=== PATIENT | female | born 1990 | race Two or more races ===

== ENCOUNTER 2025-02-12 11:02 | Outpatient (AMB) | payer MEDICAID, SELFPAY ==
[2025-02-12 11:24] VITALS: BP 112/77; PULSE 103; RESP 20; TEMP 36.7; O2SAT 97; BMI 30.7
--- NOTE | 2025-02-12 11:24 | AMB.OBINITIA ---
Vital Signs 02/12/25 11:24 Height 1.52 m Height Method Stated Weight 71.441 kg Weight Measurement Method Standing Scale BMI 30.7 BP 112/77 Blood Pressure Source Automatic Cuff Blood Pressure Location Left Upper Arm Position Sitting Respiration 20 Pulse 103 H Pulse Source Monitor Temp 98.1 F Temp Source Oral Pulse Oximetry (%) 97 Oxygen Delivery Method Room Air Allergies/Home Meds Allergies & Medications Allergies No Known Allergies Allergy (Verified 02/12/25 14:51) Medication Reconciliation vitamins no.45-iron-FA 28 mg iron-1 mg chewable tablet 1 tab PO QDAY 02/12/25 [History Confirmed 02/12/25] Intake Visit Data Collection New Patient or Established: Established Patient (seen at [facility] within 3 years) Reason for Visit:: INITIAL CARE Seen by Clinical Staff ONLY (RN/MA): No Nuclear Control Room Operator Required: Yes Nuclear Control Room Operator's name/title: TANYA RAY Do You Feel Safe at Home: Yes Authorities Contacted: N/A PCP or OBGYN visit in last 3 months: Yes Hx Now: Yes Are you currently on any form of Control: No Last menstrual period: 05/10/24 Pain Present Currently: No Pain Scale Used: López-Gale/Numerical Pain scale:: 0 Smoking Status Smoking Status: Never smoker Questionnaires Covid-19 Vaccine Questionnaire Has patient been vacinated for Covid-19 Have you been vacinated for Covid-19: Yes PHQ-9 PHQ-2 Over the last 2 weeks, how often have you been bothered by any of the following problems? 1. Little interest or pleasure in doing things: not at all 2. Feeling down, depressed, or hopeless: not at all Total score: 0 PHQ-9 3. Trouble falling or staying asleep, or sleeping too much: Not at all 4. Feeling tired or having little energy: Not at all 5. Poor appetite or overeating: Not at all 6. Feeling bad about yourself - or that you are a failure or have let yourself or your family down: Not at all 7. Trouble concentrating on things, such as reading the newspaper or watching television: Not at all 8. Moving or speaking so slowly that other people could have noticed? - Or the opposite - being so fidgety or restless that you have been moving around a lot more than usual: not at all 9. Thoughts that you would be better off or of hurting yourself in some way: Not at all Total score: 0 Source: Developed by Drs. Dawit Mak, Nkechi Beyer, Sushil Lindo and colleagues, with an educational ravi from [employer]. Depression screen completed yes Social History Living Situation History Marital Status: Lives With: Family Housing: Apartment Tobacco History Smoking Status: Never smoker Second Hand Smoke Exposure: No Alcohol History Alcohol Intake: Never Domestic Abuse History Do You Feel Safe at Home: Yes History of Present Illness HPI Narrative Patient is a [id number] at 36 weeks and 3 days gestation, [facility]. She reports having started care at [facility] but experienced delays in follow-up care due to insurance issues. She was unable to obtain insurance until last month, which delayed her ability to receive further care and ultrasounds. She has a history of one previous resulting in section in February 2024 due to failure to descend. The patient reports having an ultrasound done but does not provide specific details about the findings. She mentions that she was given an estimated due date for this month but acknowledges that it might have been irregular. She went for care in October but was unable to continue due to insurance delays. She does not report any specific symptoms or concerns related to her current . She confirms that the baby is moving, indicating activity. She denies any medical issues in the current . Surgical History: - section in February 2024 due to failure to descend Obstetric History: - GTPAL: G2 T1 L1 - Previous : section in February 2024 due to failure to descend - Current : Estimated due date January 2025, gestational age 36 weeks and 3 days by fundal height measurement MEDICAL FACILITIES SECTION DIRECTOR: Past Medical History Past Medical History: No Hx Neurological Disorders, No Hx Cardiac Disorders, No Hx Blood Disorders, No Hx Gastrointestinal Disorders, No Hx Renal Disease, No Hx Diabetes Mellitus Type 1 and No Hx Diabetes Mellitus Type 2 OB Initial Visit OB Flowsheet OB Flowsheet Initial Weight: Not Recorded Date <del>?</del> EGA Weight BP Alb Glu CTX Pres Fundal ht FHR Mov Dilation Station Effacement Hx Notes Visit Note 02/12/25 <del>?</del> 36w 3d 71.441 kg 112/77 absent cephalic 37 145 active 36-week 3-day patient presents [facility] due to prior insurance delays. Her only prior resulted in section in February 2024 for failure to descend. She reports no complications or symptoms in the current and notes normal movement. labs are unremarkable, showing blood type O+, rubella immunity, negative infectious disease screens, hemoglobin 10.6, and TSH 4.8. Fundal height is consistent with gestational age. No prior ultrasound report is available at this time. 36w3d intrauterine in a patient with prior and delayed care. Plan includes immediate referral for comprehensive ultrasound, scheduling of follow-up in 1 week, and request for prior ultrasound records. Menstrual History Menstrual reliability: definite Flow: normal Menstrual regularity: regular Monthly: Yes Age at menarche: 14 On control pills at conception: No Associated symptoms (LMP): Reports fatigue OB History : 2 Para: 1 # of Living Children: 1 Delivery History 1st : Child's name: ANA date: 03/02/24 sex: female Gestational age at delivery (weeks): 40 Delivery type: History of depression before or after : No Infection History & Risk Evaluation History of STDs: none Genetic Screening & History Genetic Screening/Teratology Counseling - Includes patient, baby's father, or anyone in either family with: 1. Patient's age 35 years or older as of estimated date of delivery: No 2. Thalassemia (German, Tamazight, Mediterranean, or Background); MCV less than 80: No 3. Neural Tube Defect (Meningomyelocele, Spina Bifida, or Anencephaly): No 4. Congenital Heart Defect: No 5. Down Syndrome: No 6. Roger-Sachs (Ashkenazi Denominational, Cajun, Cymraes Lebanese): No 7. Eulogio Disease (Ashkenazi Denominational): No 8. Familial Dysautonomia (Ashkenazi Denominational): No 9. Sickle Cell Disease or Trait (): No 10. Hemophilia or other blood disorders: No 11. Muscular Dystrophy: No 12. Cystic Fibrosis: No 13. [place]'s Chorea: No 14. Mental Retardation/Autism: No 15. Other inherited genetic or chromosomal disorder: No 16. Maternal Metabolic Disorder (EG,TYPE 1 Diabetes, PKU): No 17. Patient or baby's father had a child with defects not listed above: No 18. Recurrent loss or a stillbirth: No 19. Medications (including supplements, vitamins, herbs or otc drugs)/illicit/recreational drugs/alcohol since last menstrual period: No 20. Any other: No Infection History 1. Live with someone with TB or exposed to TB: No 2. Rash or viral illness since last menstrual period: No 3. Hepatitis B,C: No Other (see comments) Source: [employer] Review of Systems Constitutional Constitutional: Reports fatigue Endocrine Endocrine: Reports fatigue Exam General Limitations: no limitations General Appearance: alert, in no apparent distress and comfortable Head Head exam: atraumatic and normocephalic Eye Eye exam: Present normal appearance, PERRL and EOMI Neck Neck exam: Present normal inspection and full ROM Chest Chest inspection: Present normal inspection and symmetric chest wall rise; Absent tenderness Resp Respiratory exam: Present normal lung sounds bilaterally; Absent respiratory distress Card Cardiovascular exam: Present regular rate and normal rhythm Abdominal Abdominal exam: Present soft and normal bowel sounds; Absent tenderness, guarding, rebound or rigidity Neuro Neurological exam: Present alert and oriented X3 Psych Psychiatric exam: Present normal affect Office Procedures OB Clinic LOC & Office Proc's Nursing/Assessment Patient Status: Established Patient OB Clinic Nursing Assessment: Medication Reconciliation, Update PMH in EMR and Vital Signs OB Clinic Coordination of Care: Complex Care and Chronic Disease 1-5, Consent,records obtained, informed consent, Education Simp Pt/Fam, 1 Ins Authorization, Lab and Imaging orders, Results/Orders obtained and Staff clarify orders Special Needs: Heart tones Established Patient Charge Established Patient Point Assignment: 150 Established Patient Point Charge: EP Level 4 (120-155) Assessment & Plan Diagnosis / Problem List (1) Supervision of high risk , unspecified, third trimester: Status: Acute Plan , intrauterine, 36 weeks 3 days Assessment: Patient [facility] with history of section last year due to failure to descend. Current estimated at 36 weeks and 3 days based on fundal height measurement. Patient denies any medical issues in current . Initial labs reviewed with negative results for hepatitis B, hepatitis C, RPR, HIV, gonorrhea, and chlamydia. Blood type O positive with negative antibody screen. Rubella immune. Hemoglobin 10.6 with platelet count of 350. No ultrasound or imaging reports currently available. Plan: - Immediate referral to hospital for comprehensive ultrasound evaluation - Follow-up appointment scheduled for one week - Obtain previous ultrasound report from [facility]
== END 2025-02-12 11:59 | disposition home or self-care (01) ==
LOC: HODSOBC 11:02
PROVIDERS: Supervising Provider Obstetrics & Gynecology; Visit Provider Obstetrics & Gynecology
DX: O09.293 Supervision of pregnancy with other poor reproductive or obstetric history, third trimester (principal); O34.219 Maternal care for unspecified type scar from previous cesarean delivery; Z3A.36 36 weeks gestation of pregnancy; Z87.59 Personal history of other complications of pregnancy, childbirth and the puerperium
CPT/HCPCS: 99214; G0463

== ENCOUNTER 2025-02-12 14:13 | Outpatient (CLI) | payer MEDICAID, SELFPAY ==
[2025-02-12] VITALS (27 sets, daily range): BP systolic 105; BP diastolic 65; PULSE 101–127; RESP 18–98; TEMP 36.7; O2SAT 98–100; BMI 31.0
--- NOTE | 2025-02-12 14:15 | XR_ITS ---
Examination: Complete OB ultrasound greater than 14 weeks Date and time of exam: February 12, 2025 1428 hours INDICATIONS: Unknown size and dates Findings: Viable intrauterine single fetus with single amniotic sac presentation cephalic spine maternal right Cardiac motion 155 BPM Placenta fundal grade 1 Umbilical cord insertion 3 vessel seen Amniotic fluid index 15.3 cm Ovaries obscured by bowel gas. Composite estimated gestational age based on BPD, head circumference, abdominal circumference, femur length is 35 weeks 2 days Estimated weight 2614.9 g. Survey of intracranial anatomy, spinal anatomy, abdominal anatomy, four-chamber heart performed with no abnormalities identified. Impression: Viable intrauterine gestation cephalic presentation.
--- NOTE | 2025-02-12 15:16 | XR_ITS ---
Examination: Biophysical profile, ultrasound Date and time of exam: February 12, 2025 1537 hours INDICATIONS: Unknown size and dates Technique: Multiple transabdominal sonographic images of the pelvis abdomen obtained. Attention is directed to the breathing movement, gross body movement, amniotic fluid volume and tone. Findings: Amniotic fluid index 17.7 cm Total biophysical profile is 8 of 8. breathing movement is 2. Gross body movement is 2. tone is 2. Qualitative amniotic fluid volume is 2 Impression: Biophysical profile is 8 of 8.
== END 2025-02-12 16:29 | disposition home or self-care (01) ==
LOC: S4S1 14:14 → S4SX 14:14
PROVIDERS: Referring Provider Obstetrics & Gynecology; Visit Provider Obstetrics & Gynecology
DX: Z34.83 Encounter for supervision of other normal pregnancy, third trimester (principal); Z36.89 Encounter for other specified antenatal screening; Z3A.35 35 weeks gestation of pregnancy
CPT/HCPCS: 59025; 76805; 76819

== ENCOUNTER 2025-02-19 14:55 | Inpatient (IN) | payer MEDICAID, SELFPAY ==
[2025-02-19] VITALS (20 sets, daily range): BP systolic 92–125; BP diastolic 59–77; PULSE 85–124; RESP 15–98; TEMP 36.8–37.1; O2SAT 96–100; BMI 31.7
--- NOTE | 2025-02-19 15:37 | ESHP_ITS ---
Documentation for date of: 02/19/25 OB Labor/Induct. HPI History of Present Illness Chief complaint: Labor : 2 Para: 1 Term pregnancies: 1 pregnancies: 0 Living children: 1 History of Abortions: Spontaneous and Elective: 0 History of Vaginal deliveries: 0 History of sections: Yes History of : No Gestational Age (weeks): 37 Gestational Age (days): 3 History of present illness: 34-year-old 2 para 1-0-0-1 at 37 weeks and 3 days presented to triage with contractions vaginal bleeding and discharge. Patient was noted to be in early labor with cervix dilated to 2 cm. Patient has a history of a previous C- section. She reports adequate movements and denies any other complaints. History of Present Adequate Care: No Past Medical History Surgical History SURGICAL: Positive Section Meds Home Medications and Allergies Home Medications ?Medication ?Instructions ?Recorded ?Confirmed ?Type vitamins no.45-iron-FA 28 1 tab PO QDAY 02/1202/12/25 History mg iron-1 mg chewable tablet Allergies Allergy/AdvReac Type Severity Reaction Status Date / Time No Known Allergies Allergy Verified 02/12/25 14:51 OB Exam Physical Exam Vital signs: Temp Pulse Resp BP Pulse Ox 98.3 F 120 H 18 109/67 99 02/19/25 14:55 02/19/25 15:01 02/19/25 14:55 02/19/25 15:01 02/19/25 15:36 Constitutional Constitutional: no acute distress Routine HEENT Exam Head: Present normocephalic and atraumatic Eye: Present EOMI and PERRL ENT: Present mucous membranes moist Routine Neck Exam Neck: Present supple and trachea midline Routine Cardiovascular Exam Cardiovascular: Present RRR Routine Abdominal Exam Abdominal: Present soft and normoactive bowel sounds Detailed Labor and Delivery Exam Dilation (cm): 2 Effacement (%): 50 Cervix position: mid station: -3 Consistency: firm Presentation: Vertex Baseline heart rate: 135 monitor accelerations: 15x15 monitor decelerations: None Routine Extremities Exam Extremities: Present full ROM Routine Skin Exam Skin: Present intact, dry and warm Routine Neurological Exam Neurological: Present alert, oriented X3 and CN II-XII intact Routine Psychiatric Exam Psychiatric: Present normal affect and normal thought process OB Assessment & Plan Assessment and Plan (1) Supervision of high risk , unspecified, third trimester: Status: Acute (2) Previous delivery affecting : Status: Acute Assessment and plan: Admit to inpatient status for repeat low transverse IV access, CBC, type and screen, LR at 125, RPR, COVID-19 test GBS negative Ancef 2 g prior to surgery start Santiago catheter to drainage SCDs for DVT prophylaxis Anesthesia to preop for spinal anesthesia Scheduled for surgery. (3) Active labor: Status: Acute
[2025-02-19 15:55] LABS: Basophils # (Auto) 0.0 Thou/mm3 (0.0-0.2); Basophils % (Auto) 0 % (0-2.5); Eosinophils # (Auto) 0.0 Thou/mm3 (0.0-0.5); Eosinophils % (Auto) 0 % (0-10); Hematocrit 29.6 % (36.0-46.0); Hemoglobin 9.5 g/dL (12.0-16.0); Immature Granulocytes Auto 0.07 Thou/mm3 (0.00-0.00); Lymphocytes # (Auto) 1.8 Thou/mm3 (1.0-4.8); Lymphocytes % (Auto) 18 % (10-50); Mean Corpuscular HGB Conc 32.1 g/dl (31.0-37.0); Mean Corpuscular Hemoglobin 21.1 pg (25.0-35.0); Mean Corpuscular Volume 66 fL (80-100); Monocytes # (Auto) 0.8 Thou/mm3 (0.0-0.8); Monocytes % (Auto) 7 % (0-12); Neutrophils # (Auto) 7.4 Thou/mm3 (1.8-7.7); Neutrophils % (Auto) 74 % (37-80); Nucleated Red Blood Cell # 0.00 Thou/mm3 (0.00-0.00); Nucleated Red Blood Cell % 0 /100 WBC (0); Platelet Count 347 Thou/mm3 (140-440); RDW Standard Deviation 36.4 fL (36.4-46.3); Red Blood Count 4.51 Miln/mm3 (4.00-5.20); White Blood Count 10.1 Thou/mm3 (3.6-11.0)
[2025-02-19] MEDS: FAMOTIDINE INJ 10 MG/ML VIAL 2 ML 20 MG IV (16:16)
[2025-02-19] MEDS: ceFAZolin/D5W 2 GM IV 2 GM/100 ML BAG IV (16:16)
[2025-02-19 16:30] LABS: Syphilis Nonreactive (Nonreactive)
[2025-02-19 17:16] LABS: Path Review Blood Smear Sent to Pathologist
--- NOTE | 2025-02-19 17:16 | PD.GYNPROC ---
Operative Note - DOCKING SAW OPERATOR Procedure Date of procedure: 02/19/25 Procedure Performed: Repeat low-transverse section Indication: 34-year-old G2, P1 at 37 weeks and 3 days in labor Previous Anesthesia type: Spinal Procedure description: Informed consent was obtained, and the patient was brought to the operating room. Identity was confirmed using two patient identifiers. Spinal anesthesia was administered, and the patient was positioned in the supine position. The abdomen and perineum were prepped and draped in the usual sterile fashion. A Santiago catheter was inserted for continuous drainage. A surgical timeout was performed. A Pfannenstiel skin incision was made and carried through the subcutaneous tissue to the level of the rectus fascia. The fascia was incised transversely and dissected off the underlying rectus muscles. The rectus muscles were , and the peritoneum was entered bluntly. A self-retaining retractor was placed. Adhesions, if present, were taken down sharply or with electrocautery to expose the lower uterine segment. A low transverse uterine incision was made. The amniotic membranes were ruptured, and the fetus was delivered without difficulty. The umbilical cord was clamped and cut, and the infant was handed to the awaiting team. The placenta was delivered spontaneously, and the uterus was cleared of clots and membranes. The uterine incision was closed in two layers using 1-0 Monocryl. The pelvis was irrigated and inspected. Hemostasis was confirmed. The peritoneum was closed with 2-0 Vicryl. The rectus fascia was closed in a running fashion with 0 Vicryl, and the subcutaneous tissue was approximated using 2-0 plain gut. The skin was closed using InSorb absorbable jose francisco, and Dermabond Prineo dressing was applied. The patient was extubated and transferred to recovery in stable and awake condition. She tolerated the procedure well. All instrument, sponge, and lap counts were correct ?2. Specimen: none Estimated blood loss (ml): 600 Complications: none Surgical staff Operation Date: 02/19/25 16:15 <No data on this case meets the specified criteria> Diagnosis Discharge Diagnosis (1) Active labor: Status: Acute (2) Previous delivery affecting : Status: Acute (3) Supervision of high risk , unspecified, third trimester: Status: Acute Problem List Completed Was Problem List Reviewed/Reconciled?: Yes
--- NOTE | 2025-02-19 17:18 | PD.LDDELS ---
Data ([facility]) Data Hx Section: Yes : 2 Term: 1 : 0 Livin Abortions: Spontaneous & Theraputic: 0 Delivery Data ([facility]) Labor Data Initiation of labor: Spontaneous Induction/Augmentation Agent: None ROM date: 02/19/25 ROM time: 16:47 Amniotic membrane rupture type: Artificial Amniotic fluid description: Clear Delivery Data Onset of labor date: 02/19/25 Onset of labor time: 16:47 Complete dilation date: 02/19/25 Complete dilation time: 16:47 delivery date: 02/19/25 delivery time: 16:48 Placenta delivery date: 02/19/25 Placenta delivery time: 16:48 Stage 1 total time: Labor - Stage 1 Duration 0 minutes Delivered by: Danelle Delivery nurse: Rosibel Neworn nurse: [facility] at delivery: No Support person(s) at delivery: fob Other staff at delivery: Mcemehul, CURRENCY EXCHANGE SPECIALIST ramoc, ob or tech [place], A, ob or tech student Delivery Method Delivery method: Low Transverse Presentation: Vertex Anesthesia Type Anesthesia Type: Spinal Anesthesia type: Spinal Placenta Placenta delivery description: Manual Removal Cord blood sent to lab: Yes cord blood collection: Cord Blood Type Episiotomy Episiotomy description: None Umbilical Cord cord description: 3 Vessels Data ([facility]) [place] Data order: 1 's gender: Male Identification band number: [id number] weight (gms): 3130 g Weight (pounds): 6 lbs and 14.4 ozs [place] length: 48.26 cm 1 minute: 8 5 minutes: 9
[2025-02-19] MEDS: SIMETHICONE 80 MG CHEW PO (17:52)
[2025-02-19] MEDS: OXYTOCIN in NS 20 units 20 UNIT/1,000 ML BAG 125 UNIT IV (22:51)
[2025-02-20] VITALS (7 sets, daily range): BP systolic 94–105; BP diastolic 58–67; PULSE 58–95; RESP 16–97; TEMP 36.6–37.1; O2SAT 96–98
[2025-02-20] MEDS: HYDROcodone/APAP 5/325 TABLET 2 TAB PO (05:07)
[2025-02-20 05:47] LABS: Basophils # (Auto) 0.1 Thou/mm3 (0.0-0.2); Basophils % (Auto) 0 % (0-2.5); Eosinophils # (Auto) 0.1 Thou/mm3 (0.0-0.5); Eosinophils % (Auto) 1 % (0-10); Hematocrit 24.6 % (36.0-46.0); Immature Granulocytes Auto 0.07 Thou/mm3 (0.00-0.00); Lymphocytes # (Auto) 2.2 Thou/mm3 (1.0-4.8); Lymphocytes % (Auto) 19 % (10-50); Mean Corpuscular HGB Conc 31.3 g/dl (31.0-37.0); Mean Corpuscular Hemoglobin 20.8 pg (25.0-35.0); Mean Corpuscular Volume 67 fL (80-100); Monocytes # (Auto) 0.9 Thou/mm3 (0.0-0.8); Monocytes % (Auto) 8 % (0-12); Neutrophils # (Auto) 8.0 Thou/mm3 (1.8-7.7); Neutrophils % (Auto) 71 % (37-80); Nucleated Red Blood Cell # 0.00 Thou/mm3 (0.00-0.00); Nucleated Red Blood Cell % 0 /100 WBC (0); Platelet Count 231 Thou/mm3 (140-440); RDW Standard Deviation 36.2 fL (36.4-46.3); Red Blood Count 3.70 Miln/mm3 (4.00-5.20); White Blood Count 11.2 Thou/mm3 (3.6-11.0)
[2025-02-20 05:59] LABS: Hemoglobin 7.7 g/dL (12.0-16.0)
[2025-02-20] MEDS: DOCUSATE SOD 100 MG CAPSULE PO (08:43)
--- NOTE | 2025-02-20 08:43 | ESPR_ITS ---
Subjective Subjective Interval history: The patient is a 34-year-old -0-0-2 postop day #1 status post repeat C- section yesterday by Dr. Mcclendon this morning, the patient is out of bed ambulating to the restroom. She has no complaints. She is voiding. She is tolerating a general diet passing flatus. She denies heavy bleeding. She is Yi-speaking only and the entire interview and exam is ducted with the nurse present who speaks manage. Of note patient was very anemic. Her predelivery hemoglobin is 9.5 postdelivery hemoglobin is 7.7. Patient is asymptomatic we will go and give the patient IV iron today and tomorrow and see what her hemoglobin does. When she goes home it was encouraged to take iron rich foods such as meat beans and green leafy troubles. Also to continue oral iron as an outpatient. Exam Vital Signs Temp Pulse Resp BP Pulse Ox O2 Del Method 97.8 F 85 16 101/66 98 Room Air 02/20/25 04:00 02/20/25 04:00 02/20/25 04:00 02/20/25 04:00 02/20/25 04:00 02/20/25 04:00 Narrative Exam Fundus firm, nontender below her umbilicus. Dressing is in place and is clean dry and intact. Extremities show no significant edema or erythema. Objective Labs 02/20/25 05:05 Labs: Laboratory Results - last 24 hr 02/19/25 02/20/25 15:30 05:05 WBC 10.1 11.2 H RBC 4.51 3.70 L Hgb 9.5 L 7.7 L Hct 29.6 L 24.6 L MCV 66 L 67 L MCH 21.1 L 20.8 L MCHC 32.1 31.3 RDW Std Deviation 36.4 36.2 L Plt Count 347 231 D Neut % (Auto) 74 71 Lymph % (Auto) 18 19 [place] % (Auto) 7 8 Eos % (Auto) 0 1 Baso % (Auto) 0 0 Neut # (Auto) 7.4 8.0 H Lymph # (Auto) 1.8 2.2 [place] # (Auto) 0.8 0.9 H Eos # (Auto) 0.0 0.1 Baso # (Auto) 0.0 0.1 Immature Gran # (Auto) 0.07 H 0.07 H Absolute Nucleated RBC 0.00 0.00 Immature Gran % 1 H 1 H Nucleated RBC % 0 0 Smear Path Review Sent to Pathologist Syphilis Serology Nonreactive Blood Type O Positive Antibody Screen NEGATIVE Blood Bank Wristband ID Yes Assessment & Plan Problem List (1) Active labor: Status: Acute (2) Previous delivery affecting : Problem details: Patient's status post successful repeat section yesterday. She is doing well. For anemia will order IV iron. Routine postop care. Recheck hemoglobin in the morning. Status: Acute (3) Supervision of high risk , unspecified, third trimester: Status: Acute (4) delivery delivered: Status: Acute Time Spent With Patient Time: Total time spent is greater than 50% in coordination of care (as documented) at patient's floor/unit and/or counseling patient: Time with patient: less than 15 minutes
[2025-02-20] MEDS: FERRIC SOD GLUC INJ 125 MG in SODIUM CHLORIDE 0.9% 100 ML 110 MG IV (10:25)
[2025-02-20] MEDS: HYDROcodone/APAP 5/325 TABLET 1 TAB PO (16:03)
[2025-02-20] MEDS: Milk Of Magnesia Susp 30 ML UDC PO (20:35)
[2025-02-20] MEDS: KETOROLAC INJ 30 MG/ML VIAL IVP (20:35)
[2025-02-20] MEDS: SIMETHICONE 80 MG CHEW PO (20:35)
[2025-02-21 00:54] VITALS: BP 90/54; PULSE 84; RESP 17; TEMP 36.7; O2SAT 98
[2025-02-21 04:46] VITALS: BP 94/60; PULSE 80; RESP 16; TEMP 36.7; O2SAT 100
--- NOTE | 2025-02-21 08:34 | PD.LDPPPRG ---
Subjective Subjective Interval history: Delivery type: Patient doing well this morning. No acute complaints. Ambulating, tolerating p.o. and voiding without difficulty. HTN/Pre-Eclampsia screen: No chest pain, shortness of breath, headache, visual changes, epigastric or right upper quadrant pain. Breast-feeding, lochia diminishing. Bowel: Flatus+/ BM+ Exam Vital Signs Temp Pulse Resp BP Pulse Ox O2 Del Method 98.0 F 80 16 94/60 100 Room Air 02/21/25 04:46 02/21/25 04:46 02/21/25 04:46 02/21/25 04:46 02/21/25 04:46 02/21/25 04:46 Constitutional Constitutional: no acute distress Routine HEENT Exam Head: Present normocephalic and atraumatic Eye: Present EOMI and PERRL ENT: Present mucous membranes moist Routine Neck Exam Neck: Present supple and trachea midline Routine Respiratory Exam Respiratory: Present chest non-tender, lungs clear, normal breath sounds and no resp distress Routine Cardiovascular Exam Cardiovascular: Present RRR Routine Abdominal Exam Abdominal: Present soft and normoactive bowel sounds Routine Extremities Exam Extremities: Present full ROM Routine Skin Exam Skin: Present intact, dry and warm Routine Neurological Exam Neurological: Present alert, oriented X3 and CN II-XII intact Routine Psychiatric Exam Psychiatric: Present normal affect and normal thought process Objective Labs 02/20/25 05:05 Assessment & Plan Problem List (1) Active labor: Status: Acute (2) Previous delivery affecting : Status: Acute (3) Supervision of high risk , unspecified, third trimester: Status: Acute (4) delivery delivered: Status: Acute Assessment and plan: PPD/POD#2 1. Continue routine care 2. Transition to PO meds. 3. Encourage to ambulate/ breast-feed 4. Anticipate discharge home today. Time Spent With Patient Time: Total time spent is greater than 50% in coordination of care (as documented) at patient's floor/unit and/or counseling patient:
[2025-02-21 08:40] VITALS: BP 95/66; PULSE 88; RESP 18; TEMP 37.1; O2SAT 97
--- NOTE | 2025-02-21 08:43 | ESDS_ITS ---
DS: Providers Provider Date of admission: 02/19/25 15:20 Primary care physician: Physician No Primary/Family Admitting Provider: Davi Mcclendon MD Attending Provider on Admission: Ora Devi CNM Consults: 02/19/25 17:35 Referral Routine Comment: Attending Provider on DC: Davi Mcclendon MD Discharging Provider: Davi Mcclendon MD DS: Diagnosis Discharge Diagnosis (1) Active labor: Status: Acute (2) Previous delivery affecting : Status: Acute (3) Supervision of high risk , unspecified, third trimester: Status: Acute Problem List Completed Was Problem List Reviewed/Reconciled?: Yes Summary/Hosp Course Brief History: 34-year-old 2 para 1-0-0-1 at 37 weeks and 3 days presented to triage with contractions vaginal bleeding and discharge. Patient was noted to be in early labor with cervix dilated to 2 cm. Patient has a history of a previous C- section. She reports adequate movements and denies any other complaints. Peripartum Data Delivery Method: Low Transverse Episiotomy Description: None Procedures: Procedures Operation Date: 02/19/25 16:15 Actual Procedure Side Surgeon p in OB Davi Mcclendon MD Time Spent with Patient Time attestation: Total time spent providing and/or coordinating discharge services: Exam Vital Signs Temp Pulse Resp BP Pulse Ox O2 Del Method 98.0 F 80 16 94/60 100 Room Air 02/21/25 04:46 02/21/25 04:46 02/21/25 04:46 02/21/25 04:46 02/21/25 04:46 02/21/25 04:46 Discharge Plan Plan Patient Disposition: HOME (Self Care) Patient condition on transfer: Stable Prescriptions/Referrals Prescriptions/Med Rec: New ibuprofen 400 mg Tablet 800 mg PO Q8HR PRN (Reason: Pain Scale 4-6 (Moderate) 10 Days Qty: 40 0RF docusate sodium 100 mg Capsule 100 mg PO QDAY 30 Days Qty: 30 0RF Continued vitamin no.45-iron-FA 28 mg iron- 1 mg tablet,chewable 1 tab PO QDAY Referrals: No Primary/Family,Physician [Primary Care Provider] Patient/Caregiver Discharge Instructions Education Materials: C Section Dc Print Language: Guatemalan Stand Alone Forms: Tammy Award Info., Patient Portal Info Letter, DC from Surgery Discharge Order Discharge Orders: Discharge (Routine); Ordered 02/21/25 Ordered By: Davi Mcclendon Planned Discharge Date 02/21/25
[2025-02-21] MEDS: DOCUSATE SOD 100 MG CAPSULE PO (08:51)
[2025-02-21] MEDS: HYDROcodone/APAP 5/325 TABLET 1 TAB PO (08:52)
[2025-02-21] MEDS: FERRIC SOD GLUC INJ 125 MG in SODIUM CHLORIDE 0.9% 100 ML 110 MG IV (09:39)
[2025-02-21] MEDS: DIPHTH,PERTUSS(ACELL),TET VAC 0.5 ML SYR- ADULT IMi (11:48)
[2025-02-21 12:01] VITALS: BP 100/65; PULSE 94; RESP 16; TEMP 36.9; O2SAT 97
--- NOTE | 2025-02-21 16:59 | PC.NURSE ---
patient discharged and left hospital at 1540.
== END 2025-02-21 16:25 | disposition home or self-care (01) | DRG 540 ==
LOC: S4SX 16:49 → S4NX 17:07 → S4SX 02-20 06:00 → S4NX 02-21 08:43 → S4SX 02-21 16:25
PROVIDERS: Admitting Provider Obstetrics & Gynecology; Visit Provider Advanced Practice Midwife
PROC: 10D00Z1 Extraction of Products of Conception, Low, Open Approach (ICD-10-PCS; CPT 59514; principal; 2025-02-19 16:00)
DX: O34.211 Maternal care for low transverse scar from previous cesarean delivery (principal); O90.81 Anemia of the puerperium; Z37.0 Single live birth; Z3A.37 37 weeks gestation of pregnancy; Z23 Encounter for immunization
CPT/HCPCS: 36415; 85025; 86780; 86850; 86900; 86901; 90715; A4217; A4314; A4649; J0689; J1885; J2274; J2371; J2590; J2916; J3490; J7050; A9270; J2270

== ENCOUNTER 2025-03-05 09:22 | Outpatient (AMB) | payer MEDICAID, SELFPAY ==
--- NOTE | 2025-03-05 09:36 | AMBOBPPN_ITS ---
Vital Signs 03/05/25 09:46 Height 1.5 m Height Method Stated Weight 66.338 kg Weight Measurement Method Standing Scale BMI 29.5 BP 109/70 Blood Pressure Source Automatic Cuff Blood Pressure Location Left Upper Arm Position Sitting Respiration 14 Pulse 73 Pulse Source Monitor Temp 97.7 F Temp Source Oral Pulse Oximetry (%) 98 Oxygen Delivery Method Room Air Allergies/Home Meds Allergies & Medications Allergies No Known Allergies Allergy (Verified 03/05/25 09:47) Medication Reconciliation vitamins no.45-iron-FA 28 mg iron-1 mg chewable tablet 1 tab PO QDAY 02/12/25 [History Confirmed 03/05/25] docusate sodium 100 mg capsule 100 mg PO QDAY 30 days #30 caps 02/21/25 [Rx Confirmed 03/05/25] Intake Visit Data Collection New Patient or Established: Established Patient (seen at [facility] within 3 years) Reason for Visit:: Seen by Clinical Staff ONLY (RN/MA): No Sports Activities Foul Judge Required: No Do You Feel Safe at Home: Yes Authorities Contacted: N/A PCP or OBGYN visit in last 3 months: Yes Hx Now: No Are you currently on any form of Control: No Pain Present Currently: No Pain Scale Used: López-Gale/Numerical Pain scale:: 0 Smoking Status Smoking Status: Never smoker QUALITY TECH: Past Medical History Past Medical History: No Hx Neurological Disorders, No Hx Cardiac Disorders, No Hx Cancer, No Hx Blood Disorders, No Hx Anemia, No Hx Gastrointestinal Disorders, No Hx Renal Disease, Yes Hx Diabetes Mellitus Type 1 (mother of pt) and No Hx Diabetes Mellitus Type 2 Questionnaires Covid-19 Vaccine Questionnaire Has patient been vacinated for Covid-19 Have you been vacinated for Covid-19: No Social History Living Situation History Lives With: Family Housing: Apartment Tobacco History Smoking Status: Never smoker Second Hand Smoke Exposure: No Alcohol History Alcohol Intake: Never Domestic Abuse History Do You Feel Safe at Home: Yes EPDS - PP Depression Screening [place] Pospartum Depression Screen I have been able to laugh and see the funny side of things: (0) As much as I always could I have looked forward with enjoyment to things: (0) As much as I ever did I have blamed myself unnecessarily when things went wrong: (3) Yes, most of the time I have been anxious or worried for no good reason: (0) No, not at all I have felt scared or panicky for no very good reason: (0) No, not at all Things have been getting on top of me: (0) No, I have been coping as well as ever I have been so unhappy that I have had difficulty sleeping: (0) No, not at all I have felt sad or miserable: (0) No, not at all I have been so unhappy that I have been crying: (0) No, never The thought of harming myself has occurred to me: (0) Never EPDS completed yes Care OB Visit Log OB Flowsheet Initial Weight: Not Recorded Date -?-?-?-?-?-?-?-?-?-?-?-?- EGA Weight BP Alb Glu CTX Pres Fundal ht FHR Mov Dilation Station Effacement Hx Notes Visit Note 02/12/25 -?-?-?-?-?-?-?-?-?-?-?-?- 36w 3d 71.441 kg 112/77 absent cephalic 37 145 active 36-week 3-day patient presents for transfer of care from [facility] due to prior insurance delays. Her only prior resulted in section in February 2024 for failure to descend. She reports no complications or symptoms in the current and notes normal movement. labs are unremarkable, showing blood type O+, rubella immunity, negative infectious disease screens, hemoglobin 10.6, and TSH 4.8. Fundal height is consistent with gestational age. No prior ultrasound report is available at this time. 36w3d intrauterine in a patient with prior and delayed care. Plan includes immediate referral for comprehensive ultrasound, scheduling of follow-up in 1 week, and request for prior ultrasound records. OMID Calculator Estimated Delivery Date Method Current WG Current Estimate 03/09/25 LMP (Certain) 39w 3d Other Estimates 02/22/25 Ultrasound #1 41w 4d Notes Visit Date: 02/12/25 Last Updated by: Davi Mcclendon MD - Panel: Blood group O-positive, antibody screen negative, rubella immune, RPR nonreactive, hepatitis B and C negative, HIV negative, gonorrhea nonreactive, chlamydia negative, hepatitis A negative, HIV 1 and 2 negative - CBC: Hemoglobin 10.6 g/dL, platelets 350 - TSH: 4.8 - Toxicology screen: Negative HPI Interval History: Nathalia Estrada presents for a appointment following a repeat section performed on February 19, 2025. The patient reports that her baby is doing well and confirms that she is . She denies having any questions or concerns at this time. She has a history of repeat section on February 20, 2020. The patient had a recent delivery of a male , weight 6 pounds 14 ounces, length 48.26 centimeters, delivered at term via section. The patient is currently . ROS: Negative except as stated above, limited to QUALITY TECH and pertinent complaints. Exam Narrative Physical exam: - Abdominal: Previous scar well-healed. General General Appearance: alert, in no apparent distress and healthy appearing Head Head exam: atraumatic Neck Neck exam: Present normal inspection and trachea midline Chest Chest inspection: Present normal inspection and symmetric chest wall rise External exam: Present normal external exam; Absent tenderness Neuro Neurological exam: Present oriented X3 Psych Psychiatric exam: Present normal affect and normal mood Office Procedures OBC Clinic LOC & Office Proc's Nursing/Assessment Patient Status: Established Patient OB Clinic Nursing Assessment: Medication Reconciliation, Update PMH in EMR and Vital Signs OB Clinic Coordination of Care: Complex Care and Chronic Disease 1-5, Consent,records obtained, informed consent, Education Simp Pt/Fam, Lab and Imaging orders, Results/Orders obtained and Staff clarify orders Established Patient Charge Established Patient Point Assignment: 105 Established Patient Point Charge: EP Level 3 (80-115) Assessment & Plan Diagnosis / Problem List (1) Encounter for routine follow-up: Status: Acute Plan status post repeat section: - Patient presenting for routine follow-up after repeat section performed on February 19, 2025. - Surgical incision site appears well-healed with good approximation of wound ed ges. - Patient reports baby is doing well and she is successfully . Plan: - Surgical tape removed from incision site. - Patient advised to follow up with referring physician (Dr. Cox or Sara) for continued care. - Patient instructed to call referring provider to schedule appointment.
[2025-03-05 09:46] VITALS: BP 109/70; PULSE 73; RESP 14; TEMP 36.5; O2SAT 98; BMI 29.5
== END 2025-03-05 10:00 | disposition home or self-care (01) ==
LOC: HODSOBC 09:22
PROVIDERS: Supervising Provider Obstetrics & Gynecology; Visit Provider Obstetrics & Gynecology
DX: Z39.2 Encounter for routine postpartum follow-up (principal); Z39.1 Encounter for care and examination of lactating mother
CPT/HCPCS: 99213; G0463